=== PATIENT | female | born 1950 ===

== ENCOUNTER 2021-03-29 06:00 | Day surgery (SDC) | payer OTHER ==
[~2021-03-29 06:00] MED LIST: CHILDREN'S ASPI81 MG; CRESTOR10 MG; DITROPAN XL5 MG; HYDREA500 M1; METHAZOLAMIDE50 MG; PLAVIX75 MG; PRILOSEC PO
[2021-03-29] MEDS ORDERED: ULTRACET PO (12:11)
== END 2021-03-29 15:10 | disposition home or self-care (01) ==
LOC: CIR.AMB 06:00
PROVIDERS: ATTEND Surgery
DX: C67.8 Malignant neoplasm of overlapping sites of bladder (principal)
CPT/HCPCS: 36561; C1751

== ENCOUNTER 2022-12-29 07:05 | Day surgery (SDC) | payer OTHER ==
[~2022-12-29] VITALS: Ht 180.3 cm; Wt 75.3 kg
[~2022-12-29 07:05] MED LIST changes: +OMEPRA PO; +ULTRACET PO; +[UNRECOGNIZED DRUG - CODE] PO
[2022-12-29] MEDS ORDERED: TRAM1TAB98 PO (13:59)
== END 2022-12-29 17:30 | disposition home or self-care (01) ==
LOC: CIR.AMB 07:05
PROVIDERS: ATTEND Surgery
DX: C67.9 Malignant neoplasm of bladder, unspecified (principal); Z20.822 Contact with and (suspected) exposure to COVID-19; I10 Essential (primary) hypertension